=== PATIENT | female | born 1975 ===

== ENCOUNTER 2018-08-02 07:35 | Emergency (ER) | payer OTHER ==
[~2018-08-02] VITALS: Ht 162.6 cm; Wt 97.5 kg
== END 2018-08-02 10:38 | disposition home or self-care (01) ==
LOC: ER 07:35
DX: M54.2 Cervicalgia (principal); M54.5 Low back pain; M25.561 Pain in right knee; V49.88XA Car occupant (driver) (passenger) injured in other specified transport accidents, initial encounter

== ENCOUNTER → 2018-12-11 | Outpatient (CLI) | payer OTHER | END | disposition home or self-care (01) | LOC: MAMO-SONO 13:45 | DX: Z12.31 Encounter for screening mammogram for malignant neoplasm of breast (principal) ==

== ENCOUNTER 2021-01-29 07:15 | Inpatient (IN) | payer OTHER ==
[~2021-01-29] VITALS: Ht 162.6 cm; Wt 99.8 kg
[2021-01-29] MEDS ORDERED: GABAPENTIN600 MG PO (09:29)
[2021-01-29] MEDS ORDERED: LAMICTAL150 M1 PO (09:30)
[2021-02-07] MEDS ORDERED: NEURONTIN600 M1 PO (08:19)
[2021-02-07] MEDS ORDERED: LAMICTAL200 M1 PO (08:20)
[2021-02-07] MEDS ORDERED: LAMICTAL150 M1 PO (08:20)
== END 2021-02-07 09:17 | disposition home or self-care (01) | DRG 743 ==
LOC: O/R 02-05 05:44 → OB/GYN 02-05 07:00 → SURH 02-05 07:15 → OB/GYN 02-05 07:15
PROVIDERS: ADMIT Obstetrics & Gynecology; ATTEND Obstetrics & Gynecology
PROC: 0UT90ZZ Resection of Uterus, Open Approach (ICD-10-PCS; principal; 2021-02-05 07:00)
DX: D25.1 Intramural leiomyoma of uterus (principal); D25.2 Subserosal leiomyoma of uterus; N72 Inflammatory disease of cervix uteri; N80.0 Endometriosis of uterus; N93.9 Abnormal uterine and vaginal bleeding, unspecified